=== PATIENT | male | born 1990 | race Caucasian/White ===

== ENCOUNTER 2024-08-25 14:47 | Observation (INO) ==
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
--- NOTE | 2024-08-25 16:53 | XRay Report ---
Chest radiograph, one view History: Foreign body Comparison: None Findings: Single AP view of the chest performed. No focal consolidation or pleural effusion. No pneumothorax. The cardiomediastinal silhouette is within normal limits. Normal pulmonary vascularity. No evidence for lymphadenopathy. No visualized bony or soft tissue abnormality. Impression: Normal chest radiograph. No visualized foreign bodies. Electronically signed by Juanjose Johnston 08-25-2024 4:52 PM
[2024-08-25 16:56] LABS: Basophils # (auto) 0.04 K/uL (0.00-0.20); Basophils % (auto) 0.7 %; Eosinophils # (auto) 0.23 K/uL (0.00-0.50); Eosinophils % (auto) 3.9 %; Hemoglobin 14.7 g/dl (14.0-18.0); Immature Granulocytes # (auto) 0.03 K/uL (0.01-0.20); Immature Granulocytes % (auto) 0.5 %; Lymphocytes # (auto) 2.37 K/uL (1.20-3.40); Lymphocytes % (auto) 40.3 %; Mean Corpuscular Hemoglobin 33.3 pg (25.0-34.0); Mean Corpuscular Hgb Conc 34.2 g/dL (32.0-36.0); Mean Corpuscular Volume 97.5 fL (80.0-100.0); Mean Platelet Volume 9.8 fL (9.4-12.4); Monocytes # (auto) 0.52 K/uL (0.11-0.59); Monocytes % (auto) 8.8 %; Neutrophils # (auto) 2.69 K/uL (1.40-6.50); Neutrophils % (auto) 45.8 %; Platelet Count 330 K/uL (130-400); RDW Coefficient of Variation 13.1 % (11.5-14.5); RDW Standard Deviation 46.5 fL (36.4-46.3); Red Blood Count 4.41 M/uL (4.70-6.10); White Blood Count 5.88 K/ul (4.8-10.8)
[2024-08-25] MEDS: ONDANSETRON INJ 2 MG/ML 2 ML VIAL IV STA (16:56)
[2024-08-25] MEDS: MoRPHine SULFATE 2 MG/ML CARP IV STA (17:00)
[2024-08-25 17:04] LABS: iSTAT Creatinine 0.9 mg/dl (0.6-1.3); iSTAT Ionized Calcium 1.25 mmol/l (1.12-1.32); iSTAT Potassium 4.3 mmol/L (3.3-5.0)
[2024-08-25] MEDS: OPTIRAY 320 125ml IV ONE (17:09)
[2024-08-25 17:18] LABS: Albumin Globulin Ratio 1.5 (0.9-2); Bilirubin,Total 0.3 mg/dl (0.2-1.0); Calcium 9.4 mg/dl (8.6-10.3); Creatinine Clr Calc Pharmacy 126.8 ml/min; Globulin 3.2 gm/dl (2.5-4.0); Potassium 3.9 mmol/L (3.5-5.1); Total Protein 7.9 gm/dl (6.0-8.3)
[2024-08-25 17:24] LABS: Partial Thromboplastin Ratio 0.9; Partial Thromboplastin Time 25 Seconds (21-31); Prothrombin Time 10.9 Seconds (9.0-12.0)
--- NOTE | 2024-08-25 17:56 | CT Scan Report ---
EXAMINATION: CT of the abdomen and pelvis performed after the administration of IV contrast TECHNIQUE: Helical CT images from the lung bases through the symphysis pubis were obtained with contrast. Coronal and sagittal reformatted images were generated at a workstation for further assessment. Dose reduction techniques were achieved by using automatic exposure control and/or adjustment of mA and/or kV according to patient size and/or use of iterative reconstruction technique. COMPARISON: None HISTORY: Foreign body FINDINGS: Lower chest: No consolidation. No pleural effusion or pneumothorax. Liver: No suspicious liver lesions. Portal veins appear patent. Gallbladder: No gallstones. No evidence of acute cholecystitis. Spleen: Normal size. Pancreas: No suspicious pancreatic lesions. The pancreatic duct is not dilated. Adrenal glands: No adrenal nodules. Kidneys: No hydronephrosis or obstructing renal stones. Bladder / Pelvic organs: Unremarkable. Bowel: No bowel obstruction. No abnormal bowel wall thickening. The appendix is unremarkable. Lymph nodes: No retroperitoneal, mesenteric, or pelvic lymphadenopathy. Peritoneum / Retroperitoneum: No free fluid or air within the abdomen. Vessels: No infrarenal aortic aneurysm. Bones and soft tissues: No suspicious lesion in the bones. Small multilevel endplate Schmorl's nodes throughout the thoracic and lumbar spine. IMPRESSION: No acute finding in the abdomen or pelvis. No radiopaque foreign bodies. Electronically signed by Juanjose Johnston 08-25-2024 5:56 PM
--- NOTE | 2024-08-25 17:57 | CT Scan Report ---
Head CT without contrast CT angiogram of the neck CT angiogram of the brain with contrast Provided History: Neck pain Comparison: None Technique: HEAD CT: Using multidetector thin collimation helical acquisition technique, axial, coronal and sagittal CT images from the skull base to the vertex were obtained without intravenous contrast. HEAD and NECK CTA: During rapid bolus intravenous injection of nonionic contrast material, axial images were obtained using thin collimation multidetector helical technique from the base of the neck through the of vertex of the head. This CT angiogram data was reconstructed at thin intervals with mild overlap. 3D reconstructions were obtained. The axial source images, multiplanar reformations, 3D reconstructions in both maximum intensity projection display and volume rendered models were reviewed. Dose reduction techniques were achieved by using automatic exposure control and/or adjustment of mA and/or kV according to patient size and/or use of iterative reconstruction technique. Findings: Head CT: There is no intracranial hemorrhage, mass effect, or midline shift. Dewey/white matter differentiation in both cerebral hemispheres is preserved. Ventricles are proportionate to the cerebral sulci. Head CTA demonstrates no aneurysm or stenosis of the major intracranial arteries. Neck CTA demonstrates no stenosis of the major cervical arteries. The origins of the great vessels from the aortic arch are patent. No mass is noted within the visualized portions of the cervical soft tissues or lung apices. Impression: 1. Head CTA demonstrates no aneurysm or stenosis of the major intracranial arteries, 2. Neck CTA demonstrates no stenosis of the major cervical arteries. 3. No intracranial hemorrhage on the noncontrast head CT. Electronically signed by Juanjose Johnston 08-25-2024 5:56 PM
--- NOTE | 2024-08-25 17:57 | CT Scan Report ---
CT cervical spine without IV contrast History: Pain Comparison: None Technique: Using multidetector thin collimation helical acquisition technique, axial, coronal and sagittal CT images through the cervical spine were obtained without intravenous contrast. Dose reduction techniques were achieved by using automatic exposure control and/or adjustment of mA and/or kV according to patient size and/or use of iterative reconstruction technique. Findings: The cervical vertebrae are normally aligned. Straightened cervical lordosis. No acute fracture or subluxation. No prevertebral edema. There is no disc height narrowing at any level. No spinal canal or neural foraminal stenosis No abnormality of the paraspinous soft tissues. Visualized portions of the nasopharynx, oropharynx, and esophageal region appearNormal without visualized foreign bodies. Impression: No acute fracture or traumatic subluxation. Electronically signed by Juanjose Johnston 08-25-2024 5:56 PM
--- NOTE | 2024-08-25 19:43 | Emergency Department Note ---
ED Visit Note I was consulted by the Advanced Practice Provider. I personally made or approved the management plan for the patient. I performed a substantive portion of the visit. This includes the aspects of: MDM. .
[2024-08-25] MEDS: ACETAMINOPHEN 500 MG TAB PO STA (20:19)
[2024-08-25] MEDS: PANTOprazole 40 MG/10 ML SYR IV ONE (20:19)
[2024-08-25] MEDS ORDERED: ALBUTEROL HFA 8 GM INHALER INH PRN (23:03)
[2024-08-25] MEDS ORDERED: PANTOPRAZOLE BOLUS/DRIP IV STA (23:03)
[2024-08-25] MEDS ORDERED: SODIUM CHLORIDE 0.9% 100 ML IV PRN (23:29)
[2024-08-25] MEDS: PANTOprazole 80 MG in DEXTROSE 5% 100 ML IV ONE (23:59)
[2024-08-25] MEDS: SODIUM CHLORIDE 0.9% 1,000 ML IV SCH (23:59)
[2024-08-26] MEDS: MoRPHine SULFATE 2 MG/ML CARP IV STA (00:06)
[2024-08-26] MEDS: PANTOprazole 40 MG in DEXTROSE 5% MINI-B 100 ML IV SCH (00:19)
[2024-08-26] MEDS: MoRPHine SULFATE 2 MG/ML CARP IV PRN (05:31)
[2024-08-26 06:49] LABS: Basophils # (auto) 0.02 K/uL (0.00-0.20); Basophils % (auto) 0.3 %; Eosinophils # (auto) 0.21 K/uL (0.00-0.50); Eosinophils % (auto) 3.6 %; Hematocrit (blood only) 37.6 % (42.0-52.0); Hemoglobin 12.8 g/dl (14.0-18.0); Immature Granulocytes # (auto) 0.01 K/uL (0.01-0.20); Immature Granulocytes % (auto) 0.2 %; Lymphocytes # (auto) 2.68 K/uL (1.20-3.40); Lymphocytes % (auto) 46.2 %; Mean Corpuscular Hemoglobin 34.4 pg (25.0-34.0); Mean Corpuscular Volume 101.1 fL (80.0-100.0); Monocytes # (auto) 0.46 K/uL (0.11-0.59); Monocytes % (auto) 7.9 %; Neutrophils # (auto) 2.42 K/uL (1.40-6.50); Neutrophils % (auto) 41.8 %; Platelet Count 274 K/uL (130-400); RDW Coefficient of Variation 13.4 % (11.5-14.5); RDW Standard Deviation 49.8 fL (36.4-46.3); Red Blood Count 3.72 M/uL (4.70-6.10)
[2024-08-26 07:15] LABS: BUN Creatinine Ratio 15.5 (10-20); Calcium 8.6 mg/dl (8.6-10.3); Creatinine Clr Calc Pharmacy 122.6 ml/min; Potassium 4.1 mmol/L (3.5-5.1)
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
[2024-08-26] MEDS: ACETAMINOPHEN 1,000 MG/100 ML VIAL IV PRN (08:25)
[2024-08-26] MEDS: lisinopril 20 MG TAB PO SCH (08:26)
[2024-08-26] MEDS: OXcarbazepine 150 MG TABLET PO SCH (08:26)
[2024-08-26] MEDS: TOPIRAMATE 50 MG TAB PO PRN (09:13)
--- NOTE | 2024-08-26 10:22 | Gastrointestinal Consultation ---
Date of Consultation August 26, 2024 Assessment & Plan (1) Foreign body ingestion: Paper horacio x 5. Patient believes he has passed them. Imaging study showed no evidence of retained foreign bodies. (2) Hematemesis: Hematemesis red blood x 2. Drop in H&H. EGD today to evaluate potential source. Patient did not have pain with swallowing stable suggest a Joelne- [place]ina[place] tear. Will history of peptic ulcer disease in the past does not take NSAIDs due to allergy. Plan Patient admitted after foreign body ingestion with episodes of hematemesis. Foreign bodies were not seen on imaging and suspect that they have passed. Case was discussed with Dr. Hickman. - will plan for EGD for today to evaluate hematemesis. patient was agreeable. - continue with protonix drip. - follow hgb/hct and transfuse as needed. History of Present Illness Reason for Consultation: GIB Requesting Physician: Ramesh Canas MD Attending Physician: Horace Dunbar MD History of Present Illness Patient is a 33 year old male with past medical history significant for hypertension, and migraines who came to the ED with complaints of foreign body ingestion, hematemesis, and neck pain. Patient states that on 08/23/24 that he had swallowed 5 horacio so that he could come to the hospital for evaluation of neck pain. There was also a question of swallowing a spork but patient tells me he lied about this in order to come to the hosptial. Patient tells me that over the past few days that he has had episodes of hematemesis. He was going to be discharged last evening but reportedly had another episode of hematemesis. he also reports burning epigastric pain. The remainder of the GI ROS are unremarkable. 08/26/24 hgb 12.8. 08/25/24 CT A/P No acute finding in the abdomen or pelvis. No radiopaque foreign bodies. Allergies Allergy/AdvReac Type Severity Reaction Status Date / Time NSAIDS (Non-Steroidal Allergy Unknown ON SCI Verified 08/25/24 18:29 Anti-Inflamma [facility] Home Medications Medication Instructions Recorded Confirmed Type acetaminophen 500 mg tablet 1,000 mg PO TID 08/25/24 08/25/24 History (Tylenol Extra Strength) albuterol sulfate 90 mcg/actuation 2 puff inhalation QID PRN 08/25/24 08/25/24 History aerosol inhaler Shortness Of Breath Or Wheezing lisinopril 20 mg tablet 20 mg PO DAILY 08/25/24 08/25/24 History montelukast 10 mg tablet 10 mg PO HS 08/25/24 08/25/24 History (Singulair) oxcarbazepine 300 mg tablet 300 mg PO BID 08/25/24 08/25/24 History (Trileptal) topiramate 50 mg tablet 50 mg PO BID PRN Migraine Headache 08/25/24 08/25/24 History Patient History Social History Smoking Status: Never smoker Hx Alcohol Use: No Hx Substance Use: No Preferred Language: Nepali Communication Ability: Effective Marketing Communications Coordinator Required: No Beliefs That Will Affect Care: None Current Living Situation: Other Current Living Situation Comment: prisoner Feels Safe at Home: Yes Safety Concerns: Feels Safe At This Time Assistive Devices: None Review of Systems Review of Systems: All systems reviewed & are unremarkable except as noted in HPI & below Physical Exam Constitutional: WD/WN, vitals as above Respiratory: normal respiratory effort, lungs clear to auscultation Cardiovascular: Rate/Rhythm: regular rate and regular rhythm Gastrointestinal (Abdomen): epigastric tenderness to palpation, no guarding, soft, normal bowel sounds. Psychiatric: Orientation: alert and oriented x 3 Results & Data Vital Signs (Past 12 Hours) Vital Signs Temp Pulse Pulse Resp BP BP Pulse Ox 08/26/24 09:00 41 L 08/26/24 08:35 97.3 F L 46 L 18 118/76 100 08/26/24 04:38 97.5 F L 42 L 16 111/71 99 08/25/24 23:03 97.9 F 56 L 20 129/72 97 08/25/24 22:36 98.6 F 55 L 18 136/80 97 O2 Del Method 08/26/24 09:00 08/26/24 08:35 Room Air 08/26/24 04:38 Room Air 08/25/24 23:03 Room Air 08/25/24 22:36 Room Air Coding Level of Care Code 58918 IN/OBS CONSULT LVL 4,60M Diagnoses Foreign body ingestion T18.9XXA Hematemesis K92.0
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
[2024-08-26 11:42] LABS: Hematocrit (blood only) 37.5 % (42.0-52.0); Hemoglobin 13.1 g/dl (14.0-18.0)
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
[2024-08-26] MEDS ORDERED: LIDOCAINE 2% 2 ML VIAL/AMP(20MG/ML) INFIL ONE (14:07)
[2024-08-26] MEDS ORDERED: PROPOFOL IV EMULSION 10 MG/ML 20 ML VIAL IV ONE (14:07)
[2024-08-26] MEDS ORDERED: fentaNYL citrate PF 100 MCG/2 ML VIAL ONE (14:07)
[2024-08-26] MEDS ORDERED: ONDANSETRON INJ 2 MG/ML 2 ML VIAL ONE (14:07)
[2024-08-26] MEDS ORDERED: ROCURONIUM BROMIDE 10 MG/ML 5 ML VIAL IV ONE (14:07)
[2024-08-26] MEDS ORDERED: SUCCINYLCHOLINE CHLORIDE 20 MG/ML 10 ML VIAL IV ONE (14:07)
[2024-08-26] MEDS ORDERED: MIDAZOLAM HCL 1 MG/ML 2ML VIAL ONE (14:25)
[2024-08-26] MEDS ORDERED: ATROPINE SULFATE 0.1 MG/ML 10ML SYR IV PRN (14:27)
[2024-08-26] MEDS ORDERED: ePHEDrine sulfate 50 MG/ML AMP IV PRN (14:27)
[2024-08-26] MEDS ORDERED: PROMETHAZINE HCL 6.25 MG in SODIUM CHLORIDE 0.9% 50 ML IV PRN (14:27)
--- NOTE | 2024-08-26 14:27 | Anesthesiology Consultation ---
Date of Service August 26, 2024 Assessment & Plan ASA ASA3 Proposed Anesthesia Anesthesia Type: General Risk / Benefits Reviewed With: PT / POA / Parent / Guardian, Accepts Plan and Informed Consent Obtained History Surgery Operation Date: 08/26/24 08:40 Proposed Procedures p Esophagogastroduodenoscopy for Foreign Body - Manuel Hickman MD Height/Weight Height: 5 ft 5 in Weight: 109.7 kg Allergies Allergy/AdvReac Type Severity Reaction Status Date / Time NSAIDS (Non-Steroidal Allergy Unknown ON SCI Verified 08/25/24 18:29 Anti-Inflamma [facility] Medications Home Medications Medication Instructions Recorded Confirmed Last Taken acetaminophen 500 mg tablet 1,000 mg PO TID 08/25/24 08/25/24 Unknown (Tylenol Extra Strength) albuterol sulfate 90 mcg/actuation 2 puff inhalation QID PRN 08/25/24 08/25/24 Unknown aerosol inhaler Shortness Of Breath Or Wheezing lisinopril 20 mg tablet 20 mg PO DAILY 08/25/24 08/25/24 Unknown montelukast 10 mg tablet 10 mg PO HS 08/25/24 08/25/24 Unknown (Singulair) oxcarbazepine 300 mg tablet 300 mg PO BID 08/25/24 08/25/24 Unknown (Trileptal) topiramate 50 mg tablet 50 mg PO BID PRN Migraine Headache 08/25/24 08/25/24 Unknown Active Medications Generic Name Dose Route Start Last Admin Trade Name Freq PRN Reason Stop Dose Admin Pantoprazole Sodium 40 mg/ 100 mls @ 20 mls/hr 08/25/24 23:30 08/26/24 09:34 Dextrose IV 09/24/24 23:29 8 mg/hr Q5H JANICE 20 mls/hr Administration 8 MG/HR Sodium Chloride 1,000 mls @ 125 mls/hr 08/25/24 23:03 08/26/24 05:31 Nss IV 08/28/24 23:02 125 mls/hr .Q8H JANICE Administration Acetaminophen 1,000 mg in 100 mls @ 400 mls/hr 08/25/24 23:03 08/26/24 09:08 Ofirmev IV 08/28/24 23:02 Infused Q8H PRN Infusion Pain or Fever Lisinopril 20 mg 08/26/24 09:00 08/26/24 08:26 Lisinopril 20 Mg Tab PO 09/25/24 08:59 20 mg DAILY JANICE Administration Oxcarbazepine 300 mg 08/26/24 09:00 08/26/24 08:26 Oxcarbazepine 150 Mg Tablet PO 09/25/24 08:59 300 mg BID JANICE Administration Topiramate 50 mg 08/25/24 23:03 08/26/24 09:13 Topiramate 50 Mg Tab PO 09/24/24 23:02 50 mg BID PRN Administration Migraine Headache NPO Date Last Intake of Fluids: 08/25/24 Time Last Intake of Fluids: 20:00 Date Last Intake of Solids: 08/25/24 Time Last Intake of Solids: 20:00 Exercise / Class Metabolic Activity II 4-5 Yardwork/Stairs/Walk up hill Past Anesthesia History No Hx of Anesthesia Complications and No Family Hx of Anesthesia Complications History of PONV No Hx of PONV and No Hx of Motion Sickness Social History Smoking Status: Never smoker Hx Alcohol Use: No Hx Substance Use: No Physical Exam Vital Signs Last Vital Signs Temp 36.7 C 08/26/24 13:03 Pulse 45 L 08/26/24 13:03 Resp 18 08/26/24 13:03 BP 121/79 08/26/24 13:03 Pulse Ox 98 08/26/24 13:03 O2 Del Method Room Air 08/26/24 13:03 Constitutional + morbidly obese; no acute distress ENMT Mouth: + small oral opening; no dentition abnormality Thyromental Distance: > or= 3.5 Finger Breadths Mallampati Class: III Neck normal visual inspection Respiratory normal respiratory effort; no respiratory distress Auscultation: lungs clear to auscultation bilaterally Cardiovascular Rate/Rhythm: regular rate and regular rhythm Heart Sounds: no murmur Musculoskeletal Spine: normal cervical ROM Psychiatric Orientation: alert and oriented x 3 Testing Laboratory Results 08/26/24 11:23 08/26/24 05:37 PT 10.9 Seconds (9.0-12.0) 08/25/24 16:41 INR 1.0 (0.9-1.1) 08/25/24 16:41 APTT 25 Seconds (21-31) 08/25/24 16:41 Blood Type A Positive 08/25/24 23:39 Antibody Screen NEGATIVE 08/25/24 23:39 Day of Procedure Evaluation. Date of Surgery August 26, 2024 Height/Weight Height: 5 ft 5 in Weight: 109.7 kg Vital Signs Last Vital Signs Temp 36.7 C 08/26/24 13:03 Pulse 45 L 08/26/24 13:03 Resp 18 08/26/24 13:03 BP 121/79 08/26/24 13:03 Pulse Ox 98 08/26/24 13:03 O2 Del Method Room Air 08/26/24 13:03 Allergies Allergy/AdvReac Type Severity Reaction Status Date / Time NSAIDS (Non-Steroidal Allergy Unknown ON SCI Verified 08/25/24 18:29 Anti-Inflamma [facility] Medications Home Medications Medication Instructions Recorded Confirmed Last Taken acetaminophen 500 mg tablet 1,000 mg PO TID 08/25/24 08/25/24 Unknown (Tylenol Extra Strength) albuterol sulfate 90 mcg/actuation 2 puff inhalation QID PRN 08/25/24 08/25/24 Unknown aerosol inhaler Shortness Of Breath Or Wheezing lisinopril 20 mg tablet 20 mg PO DAILY 08/25/24 08/25/24 Unknown montelukast 10 mg tablet 10 mg PO HS 08/25/24 08/25/24 Unknown (Singulair) oxcarbazepine 300 mg tablet 300 mg PO BID 08/25/24 08/25/24 Unknown (Trileptal) topiramate 50 mg tablet 50 mg PO BID PRN Migraine Headache 08/25/24 08/25/24 Unknown Active Medications Generic Name Dose Route Start Last Admin Trade Name Freq PRN Reason Stop Dose Admin Pantoprazole Sodium 40 mg/ 100 mls @ 20 mls/hr 08/25/24 23:30 08/26/24 09:34 Dextrose IV 09/24/24 23:29 8 mg/hr Q5H JANICE 20 mls/hr Administration 8 MG/HR Sodium Chloride 1,000 mls @ 125 mls/hr 08/25/24 23:03 08/26/24 05:31 Nss IV 08/28/24 23:02 125 mls/hr .Q8H JANICE Administration Acetaminophen 1,000 mg in 100 mls @ 400 mls/hr 08/25/24 23:03 08/26/24 09:08 Ofirmev IV 08/28/24 23:02 Infused Q8H PRN Infusion Pain or Fever Lisinopril 20 mg 08/26/24 09:00 08/26/24 08:26 Lisinopril 20 Mg Tab PO 09/25/24 08:59 20 mg DAILY JANICE Administration Oxcarbazepine 300 mg 08/26/24 09:00 08/26/24 08:26 Oxcarbazepine 150 Mg Tablet PO 09/25/24 08:59 300 mg BID JANICE Administration Topiramate 50 mg 08/25/24 23:03 08/26/24 09:13 Topiramate 50 Mg Tab PO 09/24/24 23:02 50 mg BID PRN Administration Migraine Headache Past Anesthesia History No Hx of Anesthesia Complications and No Family Hx of Anesthesia Complications History of PONV No Hx of PONV and No Hx of Motion Sickness NPO Date Last Intake of Fluids: 08/25/24 Time Last Intake of Fluids: 20:00 Date Last Intake of Solids: 08/25/24 Time Last Intake of Solids: 20:00 Home Medications Home Medications Medication Instructions Recorded Confirmed Last Taken acetaminophen 500 mg tablet 1,000 mg PO TID 08/25/24 08/25/24 Unknown (Tylenol Extra Strength) albuterol sulfate 90 mcg/actuation 2 puff inhalation QID PRN 08/25/24 08/25/24 Unknown aerosol inhaler Shortness Of Breath Or Wheezing lisinopril 20 mg tablet 20 mg PO DAILY 08/25/24 08/25/24 Unknown montelukast 10 mg tablet 10 mg PO HS 08/25/24 08/25/24 Unknown (Singulair) oxcarbazepine 300 mg tablet 300 mg PO BID 08/25/24 08/25/24 Unknown (Trileptal) topiramate 50 mg tablet 50 mg PO BID PRN Migraine Headache 08/25/24 08/25/24 Unknown Active Medications Generic Name Dose Route Start Last Admin Trade Name Freq PRN Reason Stop Dose Admin Pantoprazole Sodium 40 mg/ 100 mls @ 20 mls/hr 08/25/24 23:30 08/26/24 09:34 Dextrose IV 09/24/24 23:29 8 mg/hr Q5H JANICE 20 mls/hr Administration 8 MG/HR Sodium Chloride 1,000 mls @ 125 mls/hr 08/25/24 23:03 08/26/24 05:31 Nss IV 08/28/24 23:02 125 mls/hr .Q8H JANICE Administration Acetaminophen 1,000 mg in 100 mls @ 400 mls/hr 08/25/24 23:03 08/26/24 09:08 Ofirmev IV 08/28/24 23:02 Infused Q8H PRN Infusion Pain or Fever Lisinopril 20 mg 08/26/24 09:00 08/26/24 08:26 Lisinopril 20 Mg Tab PO 09/25/24 08:59 20 mg DAILY JANICE Administration Oxcarbazepine 300 mg 08/26/24 09:00 08/26/24 08:26 Oxcarbazepine 150 Mg Tablet PO 09/25/24 08:59 300 mg BID JANICE Administration Topiramate 50 mg 08/25/24 23:03 08/26/24 09:13 Topiramate 50 Mg Tab PO 09/24/24 23:02 50 mg BID PRN Administration Migraine Headache Exercise / Class Metabolic Activity Metabolic Activity: II 4-5 Yardwork/Stairs/Walk up hill Physical Exam Constitutional: + morbidly obese; no acute distress Mouth: + small oral opening; no dentition abnormality Thyromental Distance: > or= 3.5 Finger Breadths Mallampati Class: III Neck: + visual inspection normal Respiratory: + respiratory effort normal and + clear to auscultation bilaterally; no respiratory distress Cardiovascular: + regular rate and + regular rhythm; no murmur Musculoskeletal: no limited cervical ROM Psychiatric: + alert and + oriented x 3 ASA ASA3 Proposed Anesthesia Proposed Anesthesia: General Risk / Benefits Reviewed With: PT / POA / Parent / Guardian, Accepts Plan and Informed Consent Obtained
[2024-08-26] MEDS: ONDANSETRON INJ 2 MG/ML 2 ML VIAL IV PRN (15:41)
[2024-08-26] MEDS: fentaNYL citrate PF 100 MCG/2 ML VIAL IV PRN (15:45)
--- NOTE | 2024-08-26 16:26 | GI REPORT ---
[facility] Patient: CARLOS SOLIS : 1990 Sex at : Male Age: 33 Years Procedure: Upper GI endoscopy Date: 08/26/2024 Attending Physician: Manuel Hickman MD Referring MD: Horace Dunbar Md Indications: - Suspected upper gastrointestinal bleeding Medications: - General Anesthesia Complications: - No immediate complications. Estimated Blood Loss: - Estimated blood loss: None. Procedure: - The EGD scope was introduced through the mouth and advanced to the second part of the duodenum. - The upper GI endoscopy was accomplished without difficulty. - The patient tolerated the procedure well. Findings: - LA Grade B (one or more mucosal breaks greater than 5 mm, not extending between the tops of two mucosal folds) esophagitis with no bleeding was found at the gastroesophageal junction (on retroflexion). - Small distal mucosal tear consistent with Jolene-Linares. No bleeding or visible vessels - The entire examined stomach was normal. - The examined duodenum was normal. Impression: - LA Grade B reflux esophagitis with no bleeding. - Small distal mucosal tear consistent with Jolene-Linares. No bleeding or visible vessels - Normal stomach. - Normal examined duodenum. - No specimens collected. Recommendation: - PPI for esophagitis. No evidence of foreign body or active GI bleeding. Patient can be discharged from a GI perspective Procedure Code(s): - 04191, Esophagogastroduodenoscopy, flexible, transoral; diagnostic, including collection of specimen(s) by brushing or washing, when performed (separate procedure) Diagnosis Code(s): - K21.00, Gastro-esophageal reflux disease with esophagitis, without bleeding CPT(R) - 2023 copyright [employer]. All Rights Reserved. The CPT codes, CCI edits and ICD codes generated are intended as suggestions and were generated based on input data. These codes are preliminary and upon forming yardage control operator review may be revised to meet current compliance and payer requirements. The provider is responsible for the final determination of appropriate codes, and modifiers. Manuel Hickman MD This document has been electronically signed. Note Initiated:08/26/2024 Note Completed:08/26/2024 4:25 PM [id number]
--- NOTE | 2024-08-26 17:32 | Communication Note ---
Date of Service: August 26, 2024 Reviewed endoscopy findings with the patient at the bedside. Jolene-Linares tear. Esophagitis. No active bleeding no foreign bodies.
[2024-08-26 17:33] LABS: Hematocrit (blood only) 40.6 % (42.0-52.0); Hemoglobin 13.7 g/dl (14.0-18.0)
--- NOTE | 2024-08-26 17:36 | Anesthesiology Progress Note ---
Date of Service August 26, 2024 Anesthesia Post Procedure Vital Signs Vital Signs: Temp Pulse Pulse Pulse Resp BP BP 08/26/24 16:18 36.6 C 46 L 18 118/76 08/26/24 16:10 65 17 120/80 08/26/24 16:00 36.6 C 62 18 125/77 08/26/24 15:50 62 15 112/70 08/26/24 15:40 73 13 119/78 08/26/24 15:32 36.6 C 81 22 126/74 08/26/24 13:03 36.7 C 45 L 18 121/79 08/26/24 11:43 36.3 C L 41 L 19 105/53 L 08/26/24 09:00 41 L 08/26/24 08:35 36.3 C L 46 L 18 118/76 08/26/24 04:38 36.4 C L 42 L 16 111/71 08/25/24 23:03 36.6 C 56 L 20 129/72 08/25/24 22:36 37.0 C 55 L 18 136/80 08/25/24 21:00 58 L 18 175/92 H 08/25/24 20:00 61 18 127/65 08/25/24 19:47 52 L 18 120/71 08/25/24 18:00 82 16 116/82 Pulse Ox O2 Del Method 08/26/24 16:18 97 Room Air 08/26/24 16:10 98 Room Air 08/26/24 16:00 97 Room Air 08/26/24 15:50 95 Room Air 08/26/24 15:40 96 Room Air 08/26/24 15:32 98 Room Air 08/26/24 13:03 98 Room Air 08/26/24 11:43 99 Room Air 08/26/24 09:00 08/26/24 08:35 100 Room Air 08/26/24 04:38 99 Room Air 08/25/24 23:03 97 Room Air 08/25/24 22:36 97 Room Air 08/25/24 21:00 96 Room Air 08/25/24 20:00 98 Room Air 08/25/24 19:47 99 Room Air 08/25/24 18:00 96 Room Air Pain Intensity Neck: Pain Intensity: 5 Abdomen: Pain Intensity: 3 Transfer of Care Handoff Completed per policy Notes Mental Status: alert / awake / arousable and participated in evaluation Patient Amnestic to Procedure: Yes Nausea / Vomiting: adequately controlled Pain: adequately controlled Airway Patency, RR, SpO2: stable & adequate BP & HR: stable & adequate Hydration State: stable & adequate Anesthetic Complications: no major complications apparent and Pt Satisfied with anesthetic care
[2024-08-26] MEDS: ACETAMINOPHEN 500 MG TAB PO SCH (21:15)
[2024-08-26] MEDS: MONTELUKAST SODIUM 10 MG TABLET PO SCH (21:16)
[2024-08-26] MEDS: PANTOprazole 40 MG TAB PO SCH (21:19)
[2024-08-27 05:53] LABS: Basophils # (auto) 0.04 K/uL (0.00-0.20); Basophils % (auto) 0.6 %; Eosinophils # (auto) 0.32 K/uL (0.00-0.50); Hematocrit (blood only) 40.1 % (42.0-52.0); Hemoglobin 13.9 g/dl (14.0-18.0); Immature Granulocytes # (auto) 0.04 K/uL (0.01-0.20); Immature Granulocytes % (auto) 0.6 %; Lymphocytes # (auto) 2.53 K/uL (1.20-3.40); Lymphocytes % (auto) 39.6 %; Mean Corpuscular Hemoglobin 34.5 pg (25.0-34.0); Mean Corpuscular Hgb Conc 34.7 g/dL (32.0-36.0); Mean Corpuscular Volume 99.5 fL (80.0-100.0); Mean Platelet Volume 10.1 fL (9.4-12.4); Monocytes % (auto) 9.4 %; Neutrophils # (auto) 2.86 K/uL (1.40-6.50); Neutrophils % (auto) 44.8 %; Platelet Count 263 K/uL (130-400); RDW Coefficient of Variation 13.2 % (11.5-14.5); RDW Standard Deviation 48.3 fL (36.4-46.3); Red Blood Count 4.03 M/uL (4.70-6.10); White Blood Count 6.39 K/ul (4.8-10.8)
[2024-08-27 06:07] LABS: BUN Creatinine Ratio 14.3 (10-20); Calcium 8.9 mg/dl (8.6-10.3); Creatinine Clr Calc Pharmacy 113.7 ml/min; Potassium 3.9 mmol/L (3.5-5.1)
[2024-08-27] MEDS: predniSONE 20 MG TAB PO SCH (09:55)
[2024-08-27] MEDS: METHOCARBAMOL 500 MG TABLET PO SCH (09:55)
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
[2024-08-27 12:51] VITALS: BP 118/74; RESP 19; TEMP 98.2; O2SAT 97
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
[2024-08-27 13:30] VITALS: PULSE 45
[2024-08-27] MEDS ORDERED: methylPREDNISolone 125 MG/2 ML VIAL IV SCH (21:00)
[2024-08-27] MEDS ORDERED: methylPREDNISolone 20 MG in SYRINGE 0 ML IV SCH (21:00)
== END 2024-08-27 15:28 | disposition home or self-care (01) | DRG 393 ==
LOC: ED 14:47 → 4W 22:05 → INTOOBSV 22:05 → 4W 22:36